=== PATIENT | male | born 1995 | race Caucasian/White ===

== ENCOUNTER 2024-03-24 17:22 | Emergency (ER) | payer OTHER ==
[~2024-03-24] VITALS: Ht 180.3 cm; Wt 65.6 kg
[2024-03-24 17:27] VITALS: BP 115/76; PULSE 98; RESP 16; O2SAT 98
[2024-03-24] MEDS: ibuprofen tablet 400 MG TABLET PO ONE (18:34)
[2024-03-24] MEDS: acetaminophen 325mg tablet PO ONE (18:34)
[2024-03-24 18:37] VITALS: TEMP 98.2
== END 2024-03-24 18:39 | disposition home or self-care (01) ==
LOC: ER 17:23
DX: S93.401A Sprain of unspecified ligament of right ankle, initial encounter (principal); X50.1XXA Overexertion from prolonged static or awkward postures, initial encounter; Y93.89 Activity, other specified; Y92.89 Other specified places as the place of occurrence of the external cause; Y99.8 Other external cause status
CPT/HCPCS: 29515; 73610; 99283; L1930